=== PATIENT | female | born 1965 | race Hispanic/Latino ===

== ENCOUNTER 2019-09-19 07:39 | Outpatient (CLI) | payer BC ==
--- NOTE | 2019-09-19 08:43 | ULT ---
ULTRASOUND ABDOMEN COMPLETE: HISTORY: A 54-year-old female with elevated liver function tests. TECHNIQUE: Rowell-scale ultrasound evaluation of the liver, gallbladder, spleen, pancreas, common bile duct, kidne ys, abdominal aorta, and inferior vena cava (IVC). FINDINGS: The gallbladder is surgically absent. The hepatic echogenicity is diffusely increased, consistent wi th fatty liver. The kidneys have normal echogenicity, and there is no hydronephrosis. There is no s plenomegaly. There is no abdominal aortic aneurysm. No free fluid is identified. The inferior vena cava is visualized. The pancreas is visualized, although ultrasound is relatively insensitive for p ancreatic pathology compared to CT and MRI. There is no biliary dilation. The common duct caliber is 5 mm. IMPRESSION: 1) Hepatic steatosis. 2) Status post cholecystectomy. 3) Otherwise negative. jn R POS: OFF
== END 2019-09-19 07:40 | disposition home or self-care (01) ==
LOC: ULT 07:39
PROVIDERS: ATTEND Family Medicine
DX: R74.0 Nonspecific elevation of levels of transaminase and lactic acid dehydrogenase [LDH] (principal); K76.0 Fatty (change of) liver, not elsewhere classified; Z90.49 Acquired absence of other specified parts of digestive tract
CPT/HCPCS: 93975

== ENCOUNTER 2025-05-17 14:14 | Outpatient (CLI) | payer BC | END 2025-05-17 14:15 | disposition home or self-care (01) | LOC: SCSRAD 14:14 | PROVIDERS: ATTEND Family Medicine | DX: M79.671 Pain in right foot (principal) ==